=== PATIENT | female | born 1990 | race Caucasian/White ===

== ENCOUNTER 2017-06-12 20:43 | Emergency (ER) | payer MEDICAID ==
[~2017-06-12] VITALS: Ht 157.5 cm; Wt 70.3 kg
[~2017-06-12 20:43] MED LIST: CIPRO500 MG PO; DIFLUCAN150 MG PO; MACROBID 100 M100 M1 PO; MACROBID 100 M100 M2 PO; NOHOMEMEDICATIONS; PROMS25 WY; ZOFRAN ODT4 MG PO
[2017-06-12 21:34] LABS: SSA (PROTEIN CONFIRMATORY) NEGATIVE (Negative); URINE CLARITY CLEAR; URINE COLOR ORANGE; URINE REDUCING SUBSTANCE NEGATIVE (Negative); URINE SPECIFIC GRAVITY 1.015 (1.005-1.030)
[2017-06-12 21:35] LABS: ACETEST (KETONE CONFIRMATORY) Negative (Negative)
[2017-06-12 21:37] LABS: ICTOTEST (BILI CONFIRMATORY) Negative (Negative)
[2017-06-12 21:38] LABS: SQUAMOUS >10 Many /LPF (0-3)
[2017-06-12 21:39] LABS: CASTS None Seen /LPF (None Seen); CRYSTALS None Seen /LPF (None Seen); MUCUS 0-3 Light strn/LPF (None Seen); URINE RBC 0-2 Rare /HPF (0-2); URINE WBC 0-5 Rare /HPF (0-5)
[2017-06-12] MEDS ORDERED: BACTRIM DS TAB1 EACH PO (21:49)
[2017-06-12 21:56] VITALS: BP 114/70
[2017-06-12] MEDS ORDERED: DIFLUCAN150 MG PO (21:58)
[2017-06-13 07:55] LABS: URINE BILIRUBIN 1+ (Negative)
== END 2017-06-12 21:58 | disposition home or self-care (01) ==
LOC: M.ERS 20:43
PROVIDERS: Physician Assistant
DX: N30.00 Acute cystitis without hematuria (principal); J06.9 Acute upper respiratory infection, unspecified

== ENCOUNTER 2017-08-20 11:33 | Emergency (ER) | payer MEDICAID ==
[~2017-08-20] VITALS: Ht 157.5 cm; Wt 72.6 kg
[~2017-08-20 11:33] MED LIST changes: +BACTRIM DS TAB1 EACH PO
[2017-08-20 12:27] LABS: URINE BILIRUBIN NEGATIVE (Negative); URINE BLOOD 3+ (Negative); URINE CLARITY CLEAR; URINE COLOR YELLOW; URINE GLUCOSE-RANDOM NEGATIVE (Negative); URINE KETONES NEGATIVE (Negative); URINE LEUKOCYTES NEGATIVE (Negative); URINE NITRITE POSITIVE (Negative); URINE PROTEIN NEGATIVE (Negative); URINE UROBILINOGEN 0.2 E.U./dl (0.2-1.0)
[2017-08-20 12:42] LABS: BACTERIA >30 Many /HPF (None Seen); CASTS None Seen /LPF (None Seen); CRYSTALS None Seen /LPF (None Seen); MUCUS None Seen strn/LPF (None Seen); SQUAMOUS 4-10 Moderate /LPF (0-3); URINE RBC 3-10 Few /HPF (0-2)
[2017-08-20] MEDS ORDERED: PYRIDIUM100 M1 PO (13:03)
[2017-08-20] MEDS ORDERED: BACTRIM DS TAB1 EACH PO (13:03)
[2017-08-20] MEDS ORDERED: DIFLUCAN150 M1 PO (13:07)
[2017-08-20 13:11] VITALS: BP 108/72
== END 2017-08-20 13:13 | disposition home or self-care (01) ==
LOC: M.ERS 11:33
PROVIDERS: Nurse Practitioner Family
DX: N39.0 Urinary tract infection, site not specified (principal); Z87.440 Personal history of urinary (tract) infections

== ENCOUNTER 2017-09-28 19:20 | Emergency (ER) | payer OTHER, MEDICAID ==
[~2017-09-28] VITALS: Ht 154.9 cm; Wt 74.8 kg
[~2017-09-28 19:20] MED LIST changes: +DIFLUCAN150 M1 PO; +PYRIDIUM100 M1 PO
[2017-09-28 19:53] LABS: URINE BILIRUBIN NEGATIVE (Negative); URINE BLOOD NEGATIVE (Negative); URINE CLARITY CLEAR; URINE COLOR YELLOW; URINE GLUCOSE-RANDOM NEGATIVE (Negative); URINE KETONES NEGATIVE (Negative); URINE LEUKOCYTES-REFLEX NEGATIVE (Negative); URINE NITRITE-REFLEX NEGATIVE (Negative); URINE PROTEIN NEGATIVE (Negative); URINE UROBILINOGEN 0.2 E.U./dl (0.2-1.0)
[2017-09-28 20:06] LABS: ABSOLUTE BASOPHILS 0.1 thou/uL (0.0-0.2); ABSOLUTE EOSINOPHILS 0.1 thou/uL (0.0-0.7); ABSOLUTE LYMPHOCYTES 2.8 thou/uL (0.8-5.3); ABSOLUTE MONOCYTES 0.6 thou/uL (0.0-1.2); ABSOLUTE NEUTROPHILS 6.3 thou/uL (1.6-8.1); BASOPHILS 0.5 %; EOSINOPHILS 1.4 %; HEMATOCRIT 37.3 % (37.0-47.0); HEMOGLOBIN 12.4 gm/dL (12.0-15.0); LYMPHOCYTES 28.4 %; MCH 29.1 pg (26.0-34.0); MCHC 33.3 g/dL (28.0-37.0); MCV 87.4 fL (80.0-100.0); MONOCYTES 6.5 %; MPV 7.7 fl. (7.2-11.1); NUCLEATED RBCS 0 /100WBC; PLATELET COUNT* 368 thou/uL (150-400); POLYS 63.2 %; RBC 4.26 mil/uL (4.20-5.00); RDW-CV 15.4 % (10.5-14.5)
[2017-09-28 20:15] LABS: CALCIUM 9.4 mg/dL (8.5-10.1); CREATININE 0.7 mg/dL (0.6-1.3); POTASSIUM 3.6 mmol/L (3.5-5.1)
[2017-09-28 20:21] LABS: TOTAL BILIRUBIN 0.1 mg/dL (<0.1-1.0); TOTAL PROTEIN 8.5 g/dL (6.4-8.2)
[2017-09-28 21:36] VITALS: BP 100/56
== END 2017-09-28 21:37 | disposition home or self-care (01) ==
LOC: M.ERS 19:20
PROVIDERS: Family Medicine
DX: R10.84 Generalized abdominal pain (principal); Z87.440 Personal history of urinary (tract) infections; Z98.890 Other specified postprocedural states

== ENCOUNTER 2018-06-02 12:49 | Emergency (ER) | payer OTHER, MEDICAID ==
[~2018-06-02] VITALS: Ht 154.9 cm; Wt 79.4 kg
[2018-06-02 13:07] LABS: URINE BILIRUBIN NEGATIVE (Negative); URINE BLOOD TRACE (Negative); URINE CLARITY CLEAR; URINE COLOR YELLOW; URINE GLUCOSE-RANDOM NEGATIVE (Negative); URINE KETONES NEGATIVE (Negative); URINE LEUKOCYTES-REFLEX NEGATIVE (Negative); URINE NITRITE-REFLEX NEGATIVE (Negative); URINE PROTEIN NEGATIVE (Negative); URINE SPECIFIC GRAVITY >= 1.030 (1.005-1.030); URINE UROBILINOGEN 0.2 E.U./dl (0.2-1.0)
[2018-06-02 13:43] LABS: ABSOLUTE EOSINOPHILS 0.1 thou/uL (0.0-0.7); ABSOLUTE LYMPHOCYTES 1.6 thou/uL (0.8-5.3); ABSOLUTE MONOCYTES 0.4 thou/uL (0.0-1.2); ABSOLUTE NEUTROPHILS 4.9 thou/uL (1.6-8.1); BASOPHILS 0.3 %; HEMATOCRIT 39.3 % (37.0-47.0); HEMOGLOBIN 13.2 gm/dL (12.0-15.0); LYMPHOCYTES 22.9 %; MCH 29.6 pg (26.0-34.0); MCHC 33.7 g/dL (28.0-37.0); MCV 87.8 fL (80.0-100.0); MONOCYTES 5.5 %; MPV 7.7 fl. (7.2-11.1); NUCLEATED RBCS 0 /100WBC; PLATELET COUNT* 328 thou/uL (150-400); POLYS 70.3 %; RBC 4.48 mil/uL (4.20-5.00); RDW-CV 14.9 % (10.5-14.5)
[2018-06-02 13:52] LABS: CALCIUM 9.3 mg/dL (8.5-10.1); CREATININE 0.6 mg/dL (0.6-1.3); POTASSIUM 3.8 mmol/L (3.5-5.1)
[2018-06-02 13:57] LABS: TOTAL BILIRUBIN 0.2 mg/dL (<0.1-1.0); TOTAL PROTEIN 8.4 g/dL (6.4-8.2)
[2018-06-02] MEDS ORDERED: IBUPROFEN 600600 M1 PO (14:34)
[2018-06-02] MEDS ORDERED: PYRIDIUM200 MG PO (14:34)
[2018-06-02 15:11] VITALS: BP 136/85
== END 2018-06-02 15:12 | disposition home or self-care (01) ==
LOC: M.ERS 12:49
PROVIDERS: Nurse Practitioner Family
DX: R30.0 Dysuria (principal); R10.32 Left lower quadrant pain; R35.0 Frequency of micturition; Z98.890 Other specified postprocedural states

== ENCOUNTER 2018-08-17 20:31 | Emergency (ER) | payer OTHER, MEDICAID ==
[~2018-08-17] VITALS: Ht 157.5 cm; Wt 72.6 kg
[~2018-08-17 20:31] MED LIST changes: +IBUPROFEN 600600 M1 PO; +PYRIDIUM200 MG PO
[2018-08-17 21:00] LABS: URINE BILIRUBIN NEGATIVE (Negative); URINE BLOOD NEGATIVE (Negative); URINE CLARITY CLEAR; URINE COLOR YELLOW; URINE GLUCOSE-RANDOM NEGATIVE (Negative); URINE KETONES NEGATIVE (Negative); URINE LEUKOCYTES-REFLEX NEGATIVE (Negative); URINE NITRITE-REFLEX NEGATIVE (Negative); URINE PROTEIN TRACE (Negative); URINE SPECIFIC GRAVITY 1.015 (1.005-1.030); URINE UROBILINOGEN 0.2 E.U./dl (0.2-1.0)
[2018-08-17] MEDS ORDERED: BACTRIM DS TAB1 EACH PO (21:08)
[2018-08-17] MEDS ORDERED: PHENAZOPYRIDIN200 M2 PO (21:08)
[2018-08-17 21:18] VITALS: BP 120/68
== END 2018-08-17 21:18 | disposition home or self-care (01) ==
LOC: M.ERS 20:31
PROVIDERS: Emergency Medicine Emergency Medical Services
DX: R30.0 Dysuria (principal); Z98.890 Other specified postprocedural states

== ENCOUNTER 2020-04-16 20:44 | Emergency (ER) | payer OTHER, MEDICAID ==
[~2020-04-16] VITALS: Ht 154.9 cm; Wt 81.7 kg
[~2020-04-16 20:44] MED LIST changes: +PHENAZOPYRIDIN200 M2 PO
[2020-04-16 21:05] LABS: URINE BILIRUBIN NEGATIVE (Negative); URINE BLOOD NEGATIVE (Negative); URINE CLARITY CLEAR; URINE COLOR YELLOW; URINE GLUCOSE-RANDOM NEGATIVE (Negative); URINE KETONES NEGATIVE (Negative); URINE LEUKOCYTES-REFLEX NEGATIVE (Negative); URINE NITRITE-REFLEX NEGATIVE (Negative); URINE PROTEIN NEGATIVE (Negative); URINE UROBILINOGEN 0.2 E.U./dl (0.2-1.0)
[2020-04-16 22:03] LABS: ABSOLUTE EOSINOPHILS 0.1 thou/uL (0.0-0.7); ABSOLUTE MONOCYTES 0.4 thou/uL (0.0-1.2); ABSOLUTE NEUTROPHILS 4.7 thou/uL (1.6-8.1); BASOPHILS 0.7 %; HEMATOCRIT 35.4 % (37.0-47.0); HEMOGLOBIN 11.8 gm/dL (12.0-15.0); LYMPHOCYTES 16.5 %; MCH 29.1 pg (26.0-34.0); MCHC 33.2 g/dL (28.0-37.0); MCV 87.7 fL (80.0-100.0); MONOCYTES 7.1 %; MPV 7.3 fl. (7.2-11.1); NUCLEATED RBCS 0 /100WBC; PLATELET COUNT* 302 thou/uL (150-400); POLYS 74.7 %; RBC 4.04 mil/uL (4.20-5.00); WBC 6.3 thou/uL (4.0-11.0)
[2020-04-16 22:11] LABS: CALCIUM 8.8 mg/dL (8.5-10.1); CREATININE 0.6 mg/dL (0.6-1.3); POTASSIUM 3.7 mmol/L (3.5-5.1)
[2020-04-16 22:20] LABS: ALBUMIN 3.7 g/dL (3.4-5.0); TOTAL BILIRUBIN 0.1 mg/dL (<0.1-1.0); TOTAL PROTEIN 8.1 g/dL (6.4-8.2)
[2020-04-16] MEDS ORDERED: PYRIDIUM100 M1 PO (23:00)
[2020-04-16] MEDS ORDERED: TORADOL 10 MG T10 MG PO (23:00)
[2020-04-16] MEDS ORDERED: ZOFRAN ODT4 MG PO (23:00)
[2020-04-16] MEDS ORDERED: HYDROCODON-ACE1 EAC7 PO (23:00)
[2020-04-16 23:36] VITALS: BP 112/68
== END 2020-04-16 23:36 | disposition home or self-care (01) ==
LOC: M.ERS 20:44
PROVIDERS: Personal Emergency Response Attendant
DX: N30.10 Interstitial cystitis (chronic) without hematuria (principal); Z98.51 Tubal ligation status; Z98.890 Other specified postprocedural states

== ENCOUNTER 2020-09-02 20:01 | Emergency (ER) | payer OTHER, MEDICAID ==
[~2020-09-02] VITALS: Ht 154.9 cm; Wt 81.6 kg
[~2020-09-02 20:01] MED LIST changes: +HYDROCODON-ACE1 EAC7 PO; +TORADOL 10 MG T10 MG PO
[2020-09-02 20:32] LABS: URINE BILIRUBIN NEGATIVE (Negative); URINE BLOOD 1+ (Negative); URINE CLARITY CLEAR; URINE COLOR YELLOW; URINE GLUCOSE-RANDOM NEGATIVE (Negative); URINE KETONES TRACE (Negative); URINE LEUKOCYTES-REFLEX NEGATIVE (Negative); URINE NITRITE-REFLEX NEGATIVE (Negative); URINE PROTEIN NEGATIVE (Negative); URINE UROBILINOGEN 0.2 E.U./dl (0.2-1.0)
[2020-09-02 20:56] LABS: ABSOLUTE LYMPHOCYTES 1.7 thou/uL (0.8-5.3); ABSOLUTE MONOCYTES 1.1 thou/uL (0.0-1.2); ABSOLUTE NEUTROPHILS 14.9 thou/uL (1.6-8.1); BASOPHILS 0.1 %; EOSINOPHILS 0.2 %; HEMATOCRIT 33.7 % (37.0-47.0); HEMOGLOBIN 10.9 gm/dL (12.0-15.0); LYMPHOCYTES 9.6 %; MCH 28.1 pg (26.0-34.0); MCHC 32.3 g/dL (28.0-37.0); MCV 86.9 fL (80.0-100.0); MONOCYTES 6.3 %; MPV 6.8 fl. (7.2-11.1); NUCLEATED RBCS 0 /100WBC; PLATELET COUNT* 555 thou/uL (150-400); POLYS 83.8 %; RBC 3.88 mil/uL (4.20-5.00); RDW-CV 14.8 % (10.5-14.5); WBC 17.8 thou/uL (4.0-11.0)
[2020-09-02 21:00] LABS: CALCIUM 8.8 mg/dL (8.5-10.1); CREATININE 0.7 mg/dL (0.6-1.3); POTASSIUM 3.5 mmol/L (3.5-5.1)
[2020-09-02 21:06] LABS: SQUAMOUS >10 Many /LPF (0-3)
[2020-09-02 21:07] LABS: CASTS None Seen /LPF (None Seen); CRYSTALS None Seen /LPF (None Seen); MUCUS None Seen strn/LPF (None Seen); URINE RBC 0-2 Rare /HPF (0-2)
[2020-09-02 21:08] LABS: URINE WBC-REFLEX 0-5 Rare /HPF (0-5)
[2020-09-02 21:10] LABS: ALBUMIN 3.1 g/dL (3.4-5.0); TOTAL BILIRUBIN 0.4 mg/dL (<0.1-1.0); TOTAL PROTEIN 8.7 g/dL (6.4-8.2)
[2020-09-03 00:40] VITALS: BP 103/64
== END 2020-09-03 00:40 | disposition short-term general hospital (02) ==
LOC: M.ERS 20:01
PROVIDERS: Personal Emergency Response Attendant
DX: R18.8 Other ascites (principal); Z20.822 Contact with and (suspected) exposure to COVID-19; Z98.51 Tubal ligation status; Z98.890 Other specified postprocedural states; Z87.440 Personal history of urinary (tract) infections

== ENCOUNTER 2020-11-13 18:52 | Emergency (ER) | payer OTHER, MEDICAID ==
[~2020-11-13] VITALS: Ht 154.9 cm; Wt 79.4 kg
[2020-11-13 19:39] VITALS: BP 118/91
== END 2020-11-13 19:39 | disposition left against medical advice (07) ==
LOC: M.ERS 18:52
DX: R21 Rash and other nonspecific skin eruption (principal); L53.9 Erythematous condition, unspecified; Z87.440 Personal history of urinary (tract) infections; Z98.890 Other specified postprocedural states; Z90.49 Acquired absence of other specified parts of digestive tract; Z98.51 Tubal ligation status; Z90.89 Acquired absence of other organs

== ENCOUNTER 2020-12-18 02:16 | Emergency (ER) | payer OTHER, MEDICAID ==
[~2020-12-18] VITALS: Ht 154.9 cm; Wt 79.8 kg
[2020-12-18 02:43] LABS: URINE BILIRUBIN NEGATIVE (Negative); URINE BLOOD 1+ (Negative); URINE CLARITY CLEAR; URINE COLOR YELLOW; URINE GLUCOSE-RANDOM NEGATIVE (Negative); URINE KETONES NEGATIVE (Negative); URINE LEUKOCYTES-REFLEX NEGATIVE (Negative); URINE NITRITE-REFLEX NEGATIVE (Negative); URINE PROTEIN NEGATIVE (Negative); URINE UROBILINOGEN 0.2 E.U./dl (0.2-1.0)
[2020-12-18 02:59] LABS: CASTS None Seen /LPF (None Seen); SQUAMOUS 4-10 Moderate /LPF (0-3)
[2020-12-18 03:00] LABS: URINE WBC-REFLEX None Seen /HPF (0-5)
[2020-12-18 03:01] LABS: BACTERIA-REFLEX 1-9 Few /HPF (None Seen); CRYSTALS None Seen /LPF (None Seen); URINE RBC 3-10 Few /HPF (0-2)
[2020-12-18] MEDS ORDERED: HYDROCODON-ACE1 EAC8 PO (03:47)
[2020-12-18] MEDS ORDERED: ZOFRAN ODT4 MG PO (03:47)
[2020-12-18 04:15] VITALS: BP 130/72
--- NOTE | 2020-12-19 09:56 | EKG ---
[place] [address] ELECTROCARDIOGRAM REPORT Name: YONNY PARTIDA Room: [facility]#: [id number] Admission: 12/18/20 Attend Phys: Discharge: 12/18/20 Date of : 89 Date of Service: 12/18/20222 Report #: [id number] THIS REPORT FOR: //name// [facility] ED Test Date: 2020-12-18 Test Time: 02:23:35 Pat Name: YONNY PARTIDA Department: Room: Gender: [place] Blockers: [facility] : 1990 Requested By: Stephanie Henriquez Order Number: [id number] MD: Reynaldo Villanueva Measurements Intervals [place] Rate: 80 P: 70 [place]: 144 QRS: 44 QRSD: 99 T: 19 QT: 392 QTc: 453 Interpretive Statements Sinus rhythm No previous ECG available for comparison Electronically Signed On 12-19-2020 9:55:55 CDT by Reynaldo Villanueva [email or web address] <ELECTRONICALLY SIGNED> By: Reynaldo Villanueva MD, [facility] 12/19/20 0955 2 2 Reynaldo Villanueva MD, FACC /EPI
== END 2020-12-18 04:15 | disposition home or self-care (01) ==
LOC: M.ERS 02:16
PROVIDERS: Emergency Medicine
DX: R05 Cough (principal); Z20.822 Contact with and (suspected) exposure to COVID-19; Z90.49 Acquired absence of other specified parts of digestive tract; Z98.890 Other specified postprocedural states

== ENCOUNTER 2021-01-29 19:13 | Emergency (ER) | payer OTHER, MEDICAID ==
[~2021-01-29] VITALS: Ht 154.9 cm; Wt 81.7 kg
[~2021-01-29 19:13] MED LIST changes: +HYDROCODON-ACE1 EAC8 PO
[2021-01-29 19:36] LABS: URINE BILIRUBIN NEGATIVE (Negative); URINE BLOOD NEGATIVE (Negative); URINE CLARITY CLEAR; URINE COLOR YELLOW; URINE GLUCOSE-RANDOM NEGATIVE (Negative); URINE KETONES NEGATIVE (Negative); URINE LEUKOCYTES-REFLEX NEGATIVE (Negative); URINE NITRITE-REFLEX NEGATIVE (Negative); URINE PROTEIN NEGATIVE (Negative); URINE SPECIFIC GRAVITY >= 1.030 (1.005-1.030); URINE UROBILINOGEN 0.2 E.U./dl (0.2-1.0)
[2021-01-29 21:15] LABS: ABSOLUTE BASOPHILS 0.1 thou/uL (0.0-0.2); ABSOLUTE EOSINOPHILS 0.1 thou/uL (0.0-0.7); ABSOLUTE LYMPHOCYTES 2.5 thou/uL (0.8-5.3); ABSOLUTE MONOCYTES 0.5 thou/uL (0.0-1.2); ABSOLUTE NEUTROPHILS 5.8 thou/uL (1.6-8.1); BASOPHILS 0.6 %; EOSINOPHILS 1.5 %; HEMATOCRIT 37.3 % (37.0-47.0); HEMOGLOBIN 12.2 gm/dL (12.0-15.0); LYMPHOCYTES 27.5 %; MCH 28.7 pg (26.0-34.0); MCHC 32.8 g/dL (28.0-37.0); MCV 87.3 fL (80.0-100.0); MONOCYTES 5.9 %; MPV 7.5 fl. (7.2-11.1); NUCLEATED RBCS 0 /100WBC; PLATELET COUNT* 372 thou/uL (150-400); POLYS 64.5 %; RBC 4.27 mil/uL (4.20-5.00); RDW-CV 15.2 % (10.5-14.5); WBC 9.1 thou/uL (4.0-11.0)
[2021-01-29 21:21] LABS: CREATININE 0.8 mg/dL (0.6-1.3); POTASSIUM 3.5 mmol/L (3.5-5.1)
[2021-01-29 21:25] LABS: ALBUMIN 4.2 g/dL (3.4-5.0); TOTAL BILIRUBIN 0.2 mg/dL (<0.1-1.0); TOTAL PROTEIN 8.7 g/dL (6.4-8.2)
[2021-01-29] MEDS ORDERED: MEDROLDOSEPACK PO (21:28)
[2021-01-29] MEDS ORDERED: TRAMADOL 50 MG50 MG PO (21:31)
[2021-01-29 21:40] VITALS: BP 125/68
== END 2021-01-29 21:40 | disposition home or self-care (01) ==
LOC: M.ERS 19:13
PROVIDERS: Nurse Practitioner Psychiatric/Mental Health
DX: M54.16 Radiculopathy, lumbar region (principal); Z87.42 Personal history of other diseases of the female genital tract; Z98.51 Tubal ligation status; Z98.890 Other specified postprocedural states; Z90.49 Acquired absence of other specified parts of digestive tract

== ENCOUNTER 2021-02-13 12:55 | Emergency (ER) | payer OTHER, MEDICAID ==
[~2021-02-13] VITALS: Ht 154.9 cm; Wt 81.7 kg
[~2021-02-13 12:55] MED LIST changes: +MEDROLDOSEPACK PO; +TRAMADOL 50 MG50 MG PO
[2021-02-13 13:20] LABS: URINE BILIRUBIN NEGATIVE (Negative); URINE BLOOD NEGATIVE (Negative); URINE CLARITY CLEAR; URINE COLOR YELLOW; URINE GLUCOSE-RANDOM NEGATIVE (Negative); URINE KETONES NEGATIVE (Negative); URINE LEUKOCYTES-REFLEX NEGATIVE (Negative); URINE NITRITE-REFLEX NEGATIVE (Negative); URINE PROTEIN NEGATIVE (Negative); URINE SPECIFIC GRAVITY >= 1.030 (1.005-1.030); URINE UROBILINOGEN 0.2 E.U./dl (0.2-1.0)
[2021-02-13 13:47] VITALS: BP 127/74
== END 2021-02-13 13:48 | disposition home or self-care (01) ==
LOC: M.ERS 12:55
PROVIDERS: Family Medicine
DX: N39.0 Urinary tract infection, site not specified (principal); Z90.49 Acquired absence of other specified parts of digestive tract; Z98.51 Tubal ligation status

== ENCOUNTER 2021-04-20 09:41 | Emergency (ER) | payer OTHER, MEDICAID ==
[~2021-04-20] VITALS: Ht 154.9 cm; Wt 79.4 kg
[2021-04-20 09:45] VITALS: BP 123/55
[2021-04-20 09:58] LABS: URINE BILIRUBIN NEGATIVE (Negative); URINE BLOOD NEGATIVE (Negative); URINE CLARITY SL CLOUDY; URINE COLOR YELLOW; URINE GLUCOSE-RANDOM NEGATIVE (Negative); URINE KETONES NEGATIVE (Negative); URINE LEUKOCYTES-REFLEX TRACE (Negative); URINE NITRITE-REFLEX NEGATIVE (Negative); URINE PROTEIN NEGATIVE (Negative); URINE SPECIFIC GRAVITY >= 1.030 (1.005-1.030); URINE UROBILINOGEN 0.2 E.U./dl (0.2-1.0)
[2021-04-20] MEDS ORDERED: CEPHALEXIN500 MG PO (10:25)
== END 2021-04-20 10:34 | disposition home or self-care (01) ==
LOC: M.ERS 09:41
PROVIDERS: Emergency Medicine Emergency Medical Services
DX: N39.0 Urinary tract infection, site not specified (principal); Z87.42 Personal history of other diseases of the female genital tract; Z98.51 Tubal ligation status; Z98.890 Other specified postprocedural states; Z90.49 Acquired absence of other specified parts of digestive tract